=== PATIENT | male | born 1990 | race Caucasian/White ===

== ENCOUNTER 2018-03-12 10:01 | Emergency (ER) | payer MEDICAID ==
[2018-03-12] MEDS ORDERED: Multivitamin Inj 10 ML, Thiamine HCL 100 MG, Magnesium Sulfate 2 GM, Folic Acid 1 MG in... IV ONE (10:28)
[2018-03-12] MEDS ORDERED: Thiamine 100 mg/mL 2mL Vial ONE (10:43)
[2018-03-12] MEDS ORDERED: Mag Sulfate 2gm/50mL Premix 2 GM/50 ML BAG IV ONE (10:43)
[2018-03-12 10:44] LABS: URINE SOURCE CLEAN C
[2018-03-12] MEDS ORDERED: Multivitamin Inj 10 mL Vial IV ONE (10:45)
[2018-03-12 10:49] LABS: % EOSINOPHILS 0.5 % (0.0-5.0); % LYMPHOCYTES 8.8 % (20.0-50.0); % MONOCYTES 8.1 % (2.0-10.0); % NEUTROPHILS 81.6 % (40.0-80.0); BASOPHILE ABSOLUTE 0.1 Th/cumm (0-0.2); HEMATOCRIT 48.9 % (41.0-60); HEMOGLOBIN 16.6 gm/dL (12-16); LYMPHOCYTE ABSOLUTE 0.6 Th/cmm (1.5-3.0); MEAN CELL VOLUME 98.2 fl (80-99); MEAN CORPUSCULAR HEMOGLOBIN 33.3 pg (26.0-30.0); MEAN CORPUSCULAR HGB CONC 33.9 pg (28.0-36.0); MEAN PLATELET VOLUME 9.2 fl; MONOCYTE ABSOLUTE 0.6 Th/cmm (0.3-1.0); PLATELET COUNT 155 Th/cmm (150-400); RED BLOOD COUNT 4.98 Mil/cmm (4.30-5.70); RED CELL DISTRIBUTION WIDTH 11.8 % (11.5-20.0); WHITE BLOOD COUNT 7.3 Th/cmm (4.8-10.8)
[2018-03-12 10:51] LABS: URINE BILIRUBIN SMALL (NEGATIVE); URINE BLOOD NEGATIVE (NEGATIVE); URINE GLUCOSE (UA) NEGATIVE (NEGATIVE); URINE KETONE 15 mg/dL (NEGATIVE); URINE LEUKOCYTE ESTERASE NEGATIVE (NEGATIVE); URINE MICROSCOPIC INDICATED? YES; URINE NITRATE NEGATIVE (NEGATIVE); URINE PROTEIN TRACE mg/dL (NEGATIVE); URINE UROBILINOGEN 0.2 E.U./dL (0.2 - 1.0)
[2018-03-12 11:01] LABS: URINE CLARITY HAZY (CLEAR); URINE COLOR DARK ORANGE
[2018-03-12 11:02] LABS: URINE BACTERIA NONE SEEN /hpf (NONE SEEN); URINE EPITHELIAL CELLS RARE /lpf (FEW); URINE RBC 0-2 /hpf (0-5); URINE WBC 0-2 /hpf (0-5)
[2018-03-12 11:05] LABS: ALB/GLOB RATIO 1.4 (1.0-1.8); ALBUMIN 4.3 gm/dL (4.2-5.5); ALKALINE PHOSPHATASE 76 U/L (34-104); AMYLASE SERUM 135 U/L (29-103); ANION GAP 13.6 (7.0-16.0); BILIRUBIN,TOTAL 1.1 mg/dL (0.3-1.0); BUN - UREA NITROGEN 9 mg/dL (7-25); CALCIUM SERUM 9.7 mg/dL (8.6-10.3); CARBON DIOXIDE 24.7 mEq/L (21.0-31.0); CHLORIDE 102 mEq/L (98-107); CREATININE - SERUM 0.6 mg/dL (0.7-1.3); GFR AFRICAN-AMERICAN > 60.0 ml/min (>90); GFR NON AFRICAN-AMERICAN > 60.0 ml/min; GLUCOSE 132 mg/dL (70-105); LIPASE 331 U/L (11-82); MAGNESIUM 1.8 mg/dL (1.9-2.7); PHOSPHOROUS 2.9 mg/dL (2.5-5.0); POTASSIUM SERUM 3.3 mEq/L (3.5-5.1); SGOT 182 U/L (13-39); SGPT/ALT 156 U/L (7-52); SODIUM SERUM 137 mEq/L (136-145); TOTAL PROTEIN,SERUM 7.4 gm/dL (6.0-8.3)
[2018-03-12 11:12] LABS: AMPHETAMINE URINE NEGATIVE (NEGATIVE); BARBITURATES URINE NEGATIVE (NEGATIVE); BENZODIAZEPINES QUAL URINE NEGATIVE (NEGATIVE); CANNABINOID THC POSITIVE (NEGATIVE); COCAINE METABOLITE QUAL URINE NEGATIVE (NEGATIVE); METHADONE URINE NEGATIVE (NEGATIVE); METHAMPHETAMINES QUAL URINE NEGATIVE (NEGATIVE); OPIATES (MORPHINE) QUAL. URINE NEGATIVE (NEGATIVE); PHENCYCLIDINE (PCP) URINE NEGATIVE (NEGATIVE); TRICYCLICS (TCA) QUAL. URINE NEGATIVE (NEGATIVE)
[2018-03-12] MEDS ORDERED: Potassium Chloride 20 mEq ER Tab PO ONE ×3 (11:21→12:50)
[2018-03-12] MEDS ORDERED: KCL 20mEq/100mL Premix 20 MEQ/100 ML PIGGYBACK IV ONE ×3 (11:32→12:52)
--- NOTE | 2018-03-12 11:48 | ED Physician Chart ---
ED Chief Complaint/HPI - Patient Information Date Seen:: 03/12/18 Time Seen:: 10:10 Chief Complaint:: LUQ pain History of Present Illness:: LUQ pain in a man who had a pancreatic pseudo cyst surgery one year ago. Allergies:: Allergies Allergy/AdvReac Type Severity Reaction Status Date / Time No Known Allergies Allergy Verified 03/12/18 10:10 Vitals:: Vital Signs - 8 hr 03/12/18 03/12/18 10:10 10:47 Temp 97.7 F 97.7 F HR 106 106 RR 17 17 BP 137/99 137/99 O2 Sat % 97 96 Historian:: Patient Review:: Nurse's Note Reviewed ED Review of Systems - Review of Systems General/Constitutional: No fever, No chills, No weight loss, No weakness, No diaphoresis, No edema, No loss of appetite Skin: No skin lesions, No rash, No bruising Head: No headache, No light-headedness Eyes: No loss of vision, No pain, No diplopia ENT: No earache, No nasal drainage, No sore throat, No tinnitus Neck: No neck pain, No swelling, No thyromegaly, No stiffness, No mass noted Cardio Vascular: No chest pain, No palpitations, No PND, No orthopnea, No edema Pulmonary: No SOB, No cough, No sputum, No wheezing GI: Nausea, Vomiting, No diarrhea, Pain, No melena, No hematochezia, No constipation, No hematemesis G/U: No dysuria, No frequency, No hematuria Musculoskeletal: No bone or joint pain, No back pain, No muscle pain Endocrine: No polyuria, No polydipsia Psychiatric: No prior psych history, No depression, No anxiety, No suicidal ideation Hematopoietic: No bruising, No lymphadenopathy Allergic/Immuno: No urticaria, No angioedema Neurological: No syncope, No focal symptoms, No weakness, No paresthesia, No headache, No seizure, No dizziness, No confusion, No vertigo ED Past Medical History - Past Medical History Obtainable: Yes Past Medical History: Other (alcohol abuse; h/o pancreatitis; possible TB in the past) Surgical History: other (pancreatic pseudocyst surgery history in the past year) Family Medical History - Family Member Mother History Unknown: Yes ED Physical Exam - Physical Examination General/Constitutional: Awake, Well-developed, well-nourished, Alert, GCS 15, Non-toxic appearing, Ambulatory Other Gen/Cons comments:: in pain. Head: Atraumatic Eyes: Lids, conjuctiva normal, PERRL, EOMI Skin: Nl inspection, No rash, No skin lesions, No ecchymosis, Well hydrated, No lymphadenopathy ENMT: External ears, nose nl, Nasal exam nl, Lips, teeth, gums nl Neck: Nontender Respiratory: Nl effort/Exclusion, Clear to Auscultation, No Wheeze/Rhonchi/Rales Cardio Vascular: RRR, No murmur, gallop, rubs, NL S1 S2 Other GI comments:: no peritoneal signs. Nonspecific tenderness to palpation. midline scar from pancreatic pseudocyst surgery one year ago. reducible, nontender umbilical hernia. : No CVA tenderness Extremities: No tenderness or effusion, Full ROM, normal strength in all extremities, No edema, Normal digits & nails Neuro/Psych: Alert/oriented, Normal sensory exam, Normal motor strength, Judgement/insight normal, Mood normal, Normal gait, No focal deficits Misc: Normal back, No paraspinal tenderness ED Labs/Radiology/EKG Results - Lab Results Results: Laboratory Tests 03/12/18 03/12/18 03/12/18 10:20 10:30 10:40 WBC 7.3 RBC 4.98 Hgb 16.6 Hct 48.9 MCV 98.2 MCH 33.3 H MCHC Differential 33.9 RDW 11.8 Plt Count 155 MPV 9.2 Neutrophils % 81.6 H Lymphocytes % 8.8 L Monocytes % 8.1 Eosinophils % 0.5 Basophils % 1.0 Sodium Potassium Chloride Carbon Dioxide Anion Gap BUN Creatinine Est GFR ( Amer) Est GFR (Non-Af Amer) BUN/Creatinine Ratio Glucose Calcium Phosphorus Magnesium Total Bilirubin AST ALT Alkaline Phosphatase Total Protein Albumin Globulin Albumin/Globulin Ratio Amylase Lipase Urine Source CLEAN C Urine Color DARK ORANGE Urine Clarity HAZY Urine pH 6.0 Ur Specific [place] >= 1.030 Urine Protein TRACE Urine Glucose (UA) NEGATIVE Urine Ketones 15 H Urine Blood NEGATIVE Urine Nitrate NEGATIVE Urine Bilirubin SMALL H Urine Urobilinogen 0.2 Ur Leukocyte Esterase NEGATIVE Urine RBC 0-2 H Urine WBC 0-2 Ur Epithelial Cells RARE Urine Bacteria NONE SEEN Urine Opiates Screen NEGATIVE Urine Methadone Screen NEGATIVE Ur Barbiturates Screen NEGATIVE Ur Tricyclics Screen NEGATIVE Ur Phencyclidine Scrn NEGATIVE Amphetamines Screen NEGATIVE U Methamphetamines Scrn NEGATIVE U Benzodiazepines Scrn NEGATIVE U Cocaine Metab Screen NEGATIVE U Cannabinoids Screen POSITIVE H Ethyl Alcohol 03/12/18 10:40 WBC RBC Hgb Hct MCV MCH MCHC Differential RDW Plt Count MPV Neutrophils % Lymphocytes % Monocytes % Eosinophils % Basophils % Sodium 137 Potassium 3.3 L Chloride 102 Carbon Dioxide 24.7 Anion Gap 13.6 BUN 9 Creatinine 0.6 L Est GFR ( Amer) > 60.0 Est GFR (Non-Af Amer) > 60.0 BUN/Creatinine Ratio 15.0 Glucose 132 H Calcium 9.7 Phosphorus 2.9 Magnesium 1.8 L Total Bilirubin 1.1 H AST 182 H ALT 156 H Alkaline Phosphatase 76 Total Protein 7.4 Albumin 4.3 Globulin 3.1 Albumin/Globulin Ratio 1.4 Amylase 135 H Lipase 331 H Urine Source Urine Color Urine Clarity Urine pH Ur Specific [place] Urine Protein Urine Glucose (UA) Urine Ketones Urine Blood Urine Nitrate Urine Bilirubin Urine Urobilinogen Ur Leukocyte Esterase Urine RBC Urine WBC Ur Epithelial Cells Urine Bacteria Urine Opiates Screen Urine Methadone Screen Ur Barbiturates Screen Ur Tricyclics Screen Ur Phencyclidine Scrn Amphetamines Screen U Methamphetamines Scrn U Benzodiazepines Scrn U Cocaine Metab Screen U Cannabinoids Screen Ethyl Alcohol < 10 ED Assessment - Assessment General Assessment: insurance requests transfer. Patient is stable for transfer. Report given to Dr[facility]ancourt of [facility] at [phone]. Report given at 1:45 p.m. patient has vomited at least 4 times in the ER. ED Septic Shock - . Is Septic Shock (SBP<90, OR Lactate>4 mmol\L) present?: No - <6hrs of presentation: Vital Signs: Vital Signs - 8 hr 03/12/18 03/12/18 10:10 10:47 Temp 97.7 F 97.7 F HR 106 106 RR 17 17 BP 137/99 137/99 O2 Sat % 97 96 ED Reassessment (Disposition) - Reassessment Reassessment Condition:: Unchanged - Diagnosis Diagnosis:: Pancreatitis Alcohol abuse Hypokalemia Low magnesium Elevated liver function tests Cannabis use - Patient Disposition Discharge/Transfer:: Acute Care (other hosp) Condition at Disposition:: Stable, Unchanged
== END 2018-03-12 14:24 | disposition short-term general hospital (02) ==
LOC: ER 10:01
DX: K85.90 Acute pancreatitis without necrosis or infection, unspecified (principal); E87.6 Hypokalemia; F10.10 Alcohol abuse, uncomplicated; E61.2 Magnesium deficiency; F12.90 Cannabis use, unspecified, uncomplicated; R94.5 Abnormal results of liver function studies; Z98.890 Other specified postprocedural states
CPT/HCPCS: 99285; 96365; 96366; 96367; 96375; 96376; 36415; 80307; 85025; 81001; 80320; 82150; 83690; 83735; 84100; 80053; J3480; J2060; J2405 ×2; J3411; J3475; J7030; X6598